=== PATIENT | female | born 1965 | race Caucasian/White ===

== ENCOUNTER 2016-12-28 11:37 | Emergency (ER) | payer BC ==
[~2016-12-28] VITALS: Ht 175.3 cm; Wt 122.0 kg
[2016-12-28] MEDS ORDERED: HYDROCHLOROTH12.5 M1 PO (11:57)
[2016-12-28] MEDS ORDERED: PHENTERMINE HCL15 MG PO (11:57)
[2016-12-28] MEDS ORDERED: CIPRO500 MG PO (12:19)
== END 2016-12-28 12:26 | disposition home or self-care (01) ==
LOC: ED 11:37
DX: N39.0 Urinary tract infection, site not specified (principal); Z88.8 Allergy status to other drugs, medicaments and biological substances; Z79.899 Other long term (current) drug therapy
CPT/HCPCS: 81001; 87077; 87088; 87186; 99283

== ENCOUNTER 2020-07-08 15:20 | Emergency (ER) | payer BC ==
[~2020-07-08] VITALS: Ht 175.3 cm; Wt 128.8 kg
[~2020-07-08 15:20] MED LIST: CIPRO500 MG PO; HYDROCHLOROTH12.5 M1 PO; PHENTERMINE HCL15 MG PO
== END 2020-07-08 19:40 | disposition home or self-care (01) ==
LOC: ED 15:20
DX: R53.83 Other fatigue (principal); R53.81 Other malaise; I10 Essential (primary) hypertension; E16.2 Hypoglycemia, unspecified; Z88.8 Allergy status to other drugs, medicaments and biological substances
CPT/HCPCS: 80053; 82550; 83036; 84443; 85025; 99283

== ENCOUNTER 2021-12-26 19:06 | Emergency (ER) | payer BC ==
[~2021-12-26] VITALS: Ht 175.3 cm; Wt 118.0 kg
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
[2021-12-26] MEDS ORDERED: BACTRIM DS TAB1 EACH PO (23:03)
== END 2021-12-26 23:17 | disposition home or self-care (01) ==
LOC: ED 19:06
DX: L03.116 Cellulitis of left lower limb (principal); I10 Essential (primary) hypertension; Z88.8 Allergy status to other drugs, medicaments and biological substances
CPT/HCPCS: 36415; 80053; 85025; 85379; 93971; 99284-25; A9270